=== PATIENT | female | born 1990 | race Caucasian/White ===

== ENCOUNTER 2017-09-14 21:33 | Emergency (ER) | payer OTHER | END 2017-09-15 01:33 | disposition home or self-care (01) | LOC: FTE 09-15 01:33 | DX: S93.401A Sprain of unspecified ligament of right ankle, initial encounter (principal); X58.XXXA Exposure to other specified factors, initial encounter; Y92.322 Soccer field as the place of occurrence of the external cause | CPT/HCPCS: 73610; 73610-RT; 99283-25 ==